=== PATIENT | male | born 1955 | race Caucasian/White ===

== ENCOUNTER 2021-06-10 18:16 | Emergency (ER) | payer MEDICARE, SELFPAY ==
[2021-06-10 18:31] VITALS: BP 155/92; PULSE 77; RESP 20; TEMP 36.6; O2SAT 96
--- NOTE | 2021-06-10 19:17 | ED.NAVMDI ---
HPI - Nausea/Vomiting/Diarrhea General Chief complaint: Nausea/Vomiting/Diarrhea Stated complaint: Nausea Time Seen by Provider: 06/10/21 19:18 Source: patient, RN notes reviewed and old records reviewed Mode of arrival: ambulatory Limitations: no limitations History of Present Illness HPI Narrative: 66year old male accompanied by presents to express care with complaints of episodes of intermittent nausea, Patient reports that he was in [place] last weak and he was on his phone doing direction riding in a car and he got nauseated and felt like he was kind of dizzy almost like being car sick. Patient reports that he was in his garage today and he was looking down at something and he got that nausea with dizziness feeling. Patient denies any headache, sore throat, chills sweats or body aches, he has had COVID vaccinations and booster MD elicited complaint: other (dizziness) Onset (ago): week(s) Associated nausea: Yes Related Data Home Medications Medication Instructions Recorded Confirmed amlodipine 10 mg PO DAILY 06/10/21 06/10/21 dutasteride 0.5 mg PO DAILY 06/10/21 06/10/21 Allergies Allergy/AdvReac Type Severity Reaction Status Date / Time No Known Allergies Allergy Verified 06/10/21 18:35 Review of Systems Review of Systems: CONSTITUTIONAL: Denies fever, chills, or sweats. EYES: Denies visual changes, redness, or discharge. ENT: Denies rhinorrhea, congestion, sore throat, or otalgia. CARDIOVASCULAR: Denies chest pain, palpitations, or edema. RESPIRATORY: Denies cough or dyspnea. GASTROINTESTINAL: Denies abdominal pain, episodes of fleeting nausea,no vomiting, or diarrhea. GENITOURINARY: Denies dysuria or hematuria. SKIN: Denies rash or itching. MUSCULOSKELETAL: Denies back pain, joint pain, or myalgia. NEUROLOGIC: Denies headache, numbness, or weakness.intermittent dizzy feeling PSYCHIATRIC: Denies anxiety or depression. All systems reviewed & are unremarkable except as noted in HPI and below PMFSH Past Medical History Medical History (Updated 06/11/21 @ 21:21 by Deanna Steinberg NP) BPH (benign prostatic hyperplasia) Hypertension Surgical History Surgical History (Updated 06/11/21 @ 21:22 by Deanna Steinberg NP) Hx of radical excision of skin lesion right side of face Social History Social History (Updated 06/11/21 @ 21:22 by Deanna Steinberg NP) Smoking status: Never smoker Alcohol intake: current Alcohol use details: rare Substance use type: does not use Living arrangements: with family Occupation/Education: retired Gender identity (if verbalized by the patient): Male Comments At time of signature, agree with nursing past medical, surgical, social and family history. There is no relevant family history pertinent to the presenting complaint Exam Narrative: GENERAL: Well-appearing, well-nourished, and in no acute distress. HEAD: Normocephalic, atraumatic. EYES: PERRLA and EOMI. ENT: Nares clear, no rhinorrhea or epistaxis. Mucous membranes moist.TM's pink with dull light reflex, throat pink with no lesions or exudates, no tonsil swelling NECK: Supple.no lymphadenopathy CHEST: Clear to auscultation. No respiratory distress.SAO2 96% on room air HEART: Regular rate and rhythm. No murmur heard. Normal peripheral pulses. ABDOMEN: Soft, nontender, nondistended, normal active bowel sounds. EXTREMITIES: Normal range of motion. No edema. SKIN: Warm, dry, no rash. NEURO: No focal deficits. Alert and oriented x3.dizziness with some change of position of head Course Course Level of Care: Express Care Visit Vital Signs Vital signs: Vital Signs Temperature 36.6 C 06/10/21 18:31 Pulse Rate 77 06/10/21 18:31 Respiratory Rate 20 06/10/21 18:31 Blood Pressure 155/92 H 06/10/21 18:31 Pulse Oximetry 96 06/10/21 18:31 Temperature 36.6 C 06/10/21 18:31 Pulse Rate 77 06/10/21 18:31 Respiratory Rate 20 06/10/21 18:31 Blood Pressure 155/92 H
== END 2021-06-10 19:50 | disposition home or self-care (01) ==
PROVIDERS: Emergency Provider Registered Nurse
DX: R11.0 Nausea (principal); R42 Dizziness and giddiness; I10 Essential (primary) hypertension
CPT/HCPCS: 99213; G0463

== ENCOUNTER 2021-09-25 08:21 | Emergency (ER) | payer MEDICARE, SELFPAY ==
[2021-09-25 08:28] VITALS: BP 136/67; PULSE 80; RESP 16; TEMP 36.5; O2SAT 99
--- NOTE | 2021-09-25 08:29 | ED.UPPEXIN ---
HPI - Extremity Injury (Upper) General Chief Complaint: Extremity Injury, Upper Stated Complaint: Left arm pain Time Seen by Provider: 09/25/21 08:30 Source: patient and RN notes reviewed History of Present Illness HPI narrative: Patient is a 66-year-old male who presents the urgent care with complaints of carpal tunnel syndrome in the left hand. Patient states that he has a history of this and he has had surgery on the right hand. Patient states that his pain and tingling started a few days ago and he is unable to sleep at night. Patient states that he does not see his plastic surgeon until December. Patient is also from [place] and is here on vacation and has not been able to get a hold of his doctor. No other acute complaints. No acute distress noted. Patient aware of the plan of care. Some parts of this dictation were generated by voice recognition software and may contain typographical and/or grammatical inaccuracies. Related Data Home Medications Medication Instructions Recorded Confirmed amlodipine 10 mg tablet 10 mg PO DAILY 06/10/21 06/10/21 dutasteride 0.5 mg capsule 0.5 mg PO DAILY 06/10/21 06/10/21 Allergies Allergy/AdvReac Type Severity Reaction Status Date / Time No Known Allergies Allergy Verified 09/25/21 08:50 Review of Systems Review of Systems: CONSTITUTIONAL: Denies fever, chills, or sweats. EYES: Denies visual changes, redness, or discharge. ENT: Denies rhinorrhea, congestion, sore throat, or otalgia. CARDIOVASCULAR: Denies chest pain, palpitations, or edema. RESPIRATORY: Denies cough or dyspnea. GASTROINTESTINAL: Denies abdominal pain, nausea, vomiting, or diarrhea. GENITOURINARY: Denies dysuria or hematuria. SKIN: Denies rash or itching. MUSCULOSKELETAL: Reports of intermittent numbness and tingling with pain to the left hand, consistent with his history of carpal tunnel NEUROLOGIC: Denies headache, numbness, or weakness. All other systems reviewed are negative, except as documented in HPI. [facility] Past Medical History Medical History (Updated 09/25/21 @ 08:46 by CESAR Zendejas) BPH (benign prostatic hyperplasia) Hypertension Surgical History Surgical History (Updated 06/11/21 @ 21:22 by Deanna Steinberg NP) Hx of radical excision of skin lesion right side of face Social History Social History (Updated 06/11/21 @ 21:22 by Deanna Steinberg NP) Smoking status: Never smoker Alcohol intake: current Alcohol use details: rare Substance use type: does not use Gender identity (if verbalized by the patient): Male Comments At the time of my signature, I reviewed and agree with the nursing past medical, surgical, social, and family history. There is no relevant family history pertinent to the patient complaint. Exam Narrative: GENERAL: This is a well-nourished, well-developed patient, in no apparent distress. HEAD: normocephalic, atraumatic. EYES: PERRL. Sclera clear/white. Vision is grossly intact. EARS: External ears normal NOSE: External nose normal with no obvious nasal discharge, nares without redness, no rhinorrhea. THROAT: Mucous membranes moist NECK: Neck supple CARDIOVASCULAR: Regular rate and rhythm without murmurs, gallops, or rubs. RESPIRATORY: Clear to auscultation. Breath sounds equal bilaterally. No wheezes, rales, or rhonchi. SKIN: warm, intact with no suspicious lesions or rash, good texture and turgor. NEURO: awake, alert, and oriented to person, place and time. There were no obvious focal neurologic abnormalities. EXTREMITIES: Positive bilateral Tinel sign. No obvious deformity or edema noted to the left upper extremity. Positive strong left radial pulse with capillary refill less than 2 seconds. Range of motion bilateral upper extremities within normal limits. Course Course Level of Care: Express Care Visit Vital Signs Vital signs: Vital Signs Temperature 97.7 F 09/25/21 08:28 Pulse Rate 80 09/25/21 08:28 Respiratory Rate
== END 2021-09-25 08:50 | disposition home or self-care (01) ==
PROVIDERS: Emergency Provider Nurse Practitioner Family
DX: G56.02 Carpal tunnel syndrome, left upper limb (principal); N40.0 Benign prostatic hyperplasia without lower urinary tract symptoms; I10 Essential (primary) hypertension
CPT/HCPCS: 99213; G0463